=== PATIENT | male | born 1985 | race Caucasian/White ===

== ENCOUNTER 2018-12-31 11:27 | Emergency (ER) | payer OTHER ==
[~2018-12-31] VITALS: Ht 175.3 cm; Wt 62.6 kg
[2018-12-31] MEDS ORDERED: ZUBSOLV 2.9-0.1 EACH SUBLING (11:38)
[2018-12-31 12:09] LABS: ABSOLUTE MONOCYTES 0.2 thou/uL (0.0-1.2); ABSOLUTE NEUTROPHILS 2.4 thou/uL (1.6-8.1); BASOPHILS 0.9 %; EOSINOPHILS 0.8 %; HEMATOCRIT 42.8 % (42.0-52.0); HEMOGLOBIN 14.8 gm/dL (14.0-18.0); LYMPHOCYTES 27.2 %; MCH 30.3 pg (26.0-34.0); MCHC 34.6 g/dL (28.0-37.0); MCV 87.4 fL (80.0-100.0); MONOCYTES 6.2 %; MPV 7.9 fl. (7.2-11.1); NUCLEATED RBCS 0 /100WBC; PLATELET COUNT* 147 thou/uL (150-400); POLYS 64.9 %; RBC 4.89 mil/uL (4.50-6.00); RDW-CV 12.9 % (10.5-14.5); WBC 3.7 thou/uL (4.0-11.0)
[2018-12-31 12:22] LABS: APTT 29.5 Seconds (25.0-31.3); INR 1.1; PROTIME 10.8 Seconds (9.20-11.50)
[2018-12-31 12:23] LABS: CALCIUM 9.1 mg/dL (8.5-10.1); CREATININE 0.9 mg/dL (0.6-1.3); POTASSIUM 4.5 mmol/L (3.5-5.1)
[2018-12-31 12:27] LABS: ALBUMIN 4.6 g/dL (3.4-5.0); TOTAL BILIRUBIN 0.9 mg/dL (<0.1-1.0); TOTAL PROTEIN 7.9 g/dL (6.4-8.2)
[2018-12-31 12:29] LABS: URINE BILIRUBIN NEGATIVE (Negative); URINE BLOOD 3+ (Negative); URINE CLARITY CLEAR; URINE COLOR YELLOW; URINE GLUCOSE-RANDOM NEGATIVE (Negative); URINE KETONES NEGATIVE (Negative); URINE LEUKOCYTES-REFLEX NEGATIVE (Negative); URINE NITRITE-REFLEX NEGATIVE (Negative); URINE PROTEIN 1+ (Negative); URINE UROBILINOGEN 0.2 E.U./dl (0.2-1.0)
[2018-12-31 12:32] LABS: SQUAMOUS 0-3 Few /LPF (0-3); URINE WBC-REFLEX 0-5 Rare /HPF (0-5)
[2018-12-31 12:33] LABS: BACTERIA-REFLEX 1-9 Few /HPF (None Seen); CASTS None Seen /LPF (None Seen); CRYSTALS None Seen /LPF (None Seen); MUCUS >6 Heavy strn/LPF (None Seen); URINE RBC >20 Many /HPF (0-2)
[2018-12-31] MEDS ORDERED: ACTICIN 5% CREA60 G1 TOP (13:40)
[2018-12-31] MEDS ORDERED: CIPRO500 MG PO (13:40)
[2018-12-31 14:00] VITALS: BP 113/71
== END 2018-12-31 14:00 | disposition home or self-care (01) ==
LOC: M.ERS 11:27
PROVIDERS: Nurse Practitioner Family
DX: N39.0 Urinary tract infection, site not specified (principal); B86 Scabies; R31.9 Hematuria, unspecified